=== PATIENT | female | born 1995 | race Caucasian/White ===

== ENCOUNTER 2020-10-02 23:15 | Emergency (ER) | payer MEDICAID, OTHER ==
[~2020-10-02] VITALS: Ht 165.1 cm; Wt 77.3 kg
[2020-10-02] MEDS ORDERED: ARIP2TAB27 PO (23:49)
[2020-10-02] MEDS ORDERED: CLON-592 PO (23:49)
[2020-10-02] MEDS ORDERED: DIVA-80 PO (23:49)
[2020-10-03] MEDS ORDERED: KETOROLAC TROMETHAMINE 30 MG/ML VIAL IM ONE (04:30)
[2020-10-03 04:43] VITALS: BP 132/70
== END 2020-10-03 04:50 | disposition home or self-care (01) ==
LOC: EMS 23:15
DX: S13.9XXA Sprain of joints and ligaments of unspecified parts of neck, initial encounter (principal); S16.1XXA Strain of muscle, fascia and tendon at neck level, initial encounter; R51.9 Headache, unspecified; M54.5 Low back pain; F41.9 Anxiety disorder, unspecified; F31.9 Bipolar disorder, unspecified; F12.90 Cannabis use, unspecified, uncomplicated; V43.52XA Car driver injured in collision with other type car in traffic accident, initial encounter; Y93.89 Activity, other specified; Y92.488 Other paved roadways as the place of occurrence of the external cause; Y99.8 Other external cause status
CPT/HCPCS: 96372; 99285; J1885; 99283